=== PATIENT | male | born 1960 | race Caucasian/White ===

== ENCOUNTER → 2024-10-12 07:43 | Outpatient (CLI) | payer OTHER, SELFPAY ==
--- NOTE | 2024-10-12 07:44 | DI.MRI.S_ITS ---
PROCEDURE: MR PELIS WO/W CON INDICATIONS: 63 y/o M w/ elevated PSA, please eval. TECHNIQUE: Coronal HASTE, axial T1 FSE with fat saturation, 3-plane nonbreath-hold T2 FSE. After the administration of contrast, dynamic axial, delayed axial and coronal VIBE or 2-D FLASH with fat saturation through the pelvis. Diffusion weighted imaging and ADC was performed. COMPARISON: None. FINDINGS: Image quality: Diffusion weighted and dynamic contrast enhanced images are diagnostic. Prostate: Gland size is 5.6 x 5.3 x 4.3 cm; ellipsoid gland volume is 66 mL. There is peripheral, T2 hypointense signal within the peripheral zone, majority of which in the base, without restricted diffusion; findings likely indicate prostatitis. Hypertrophy of the transition zone. Prostate lesion as follows: Lesion 1: Location: Right anterior transition zone, close to midline, base to mid gland, on axial series 4, image 14 and coronal series 5, image 10. Size: 1.5 x 2.3 cm. T2W signal: Hypointense. Partially capsulated. DWI signal: Markedly hyperintense. ADC signal: Markedly hypointense. Enhancement: Yes. Extracapsular extension: No. No neurovascular involvement. PI-RADS score: 3 Genitourinary system: Trabeculated bladder wall. Distal ureters are non distended. Bowel and peritoneum: No pathologic free pelvic fluid. Inferior colon and small bowel loops are normal in caliber. Nodes and vessels: No pelvic or inguinal adenopathy by size criteria. Iliac vessels are normal in caliber. Soft tissues: No inguinal hernias. Bones: Marrow demonstrates normal overall signal, without lesions to suggest metastases. IMPRESSION: Prostatitis. PI-RADS 3 lesion, as above. No pelvic lymphadenopathy by size criteria. No aggressive osseous abnormality. Dictated by: Jose Rafael Macias M.D. on 10/12/2024 at 13:20 Approved by: Jose Rafael Macias M.D. on 10/12/2024 at 13:41
== END ==
PROVIDERS: Family Provider Family Medicine; PCP Family Medicine; Referring Provider Urology; Visit Provider Urology
DX: N41.9 Inflammatory disease of prostate, unspecified (principal); N42.9 Disorder of prostate, unspecified; N32.89 Other specified disorders of bladder; R97.20 Elevated prostate specific antigen [PSA]
CPT/HCPCS: 72197; A9579

== ENCOUNTER → 2025-04-25 09:57 | Outpatient (CLI) | payer OTHER, SELFPAY ==
--- NOTE | 2025-04-25 09:58 | DI.RAD.S_ITS ---
PROCEDURE: XR FOOT LT MIN 3V INDICATIONS: Non-healing wound of L 2nd MTP/ball of foot, eval for osteo TECHNIQUE: 3 views of the foot were acquired. COMPARISON: None. FINDINGS: Bones: No specific radiographic evidence of osteomyelitis. Severe hallux valgus, moderate metatarsus abductus and hammertoe deformities 1st 3rd 4th and 5th digits noted. 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 Joints: Moderate degeneration 1st MTP and mild degeneration in the interphalangeal joints and midfoot Soft tissues: No soft tissue abnormality. IMPRESSION: No specific evidence for osteomyelitis. Other chronic findings that as described Dictated by: Abdoulaye Saldivar M.D. on 04/26/2025 at 10:47 Approved by: Abdoulaye Saldivar M.D. on 04/26/2025 at 10:48
== END ==
PROVIDERS: Family Provider Family Medicine; PCP Family Medicine; Referring Provider Surgery; Visit Provider Surgery
DX: L89.899 Pressure ulcer of other site, unspecified stage (principal); M20.12 Hallux valgus (acquired), left foot; M20.42 Other hammer toe(s) (acquired), left foot; M19.072 Primary osteoarthritis, left ankle and foot; L89.893 Pressure ulcer of other site, stage 3; L84 Corns and callosities; R60.0 Localized edema; I10 Essential (primary) hypertension; Z89.422 Acquired absence of other left toe(s)
CPT/HCPCS: 73630; 87070; 87077; 87147; 87205

== ENCOUNTER → 2025-05-16 10:09 | Outpatient (CLI) | payer OTHER, SELFPAY | LOC: WC 10:18 | PROVIDERS: Family Provider Family Medicine; PCP Family Medicine; Referring Provider Family Medicine; Visit Provider Surgery | DX: L89.893 Pressure ulcer of other site, stage 3 (principal); L84 Corns and callosities; I10 Essential (primary) hypertension; Z89.422 Acquired absence of other left toe(s) | CPT/HCPCS: 99213 ==

== ENCOUNTER → 2025-05-29 13:41 | Outpatient (CLI) | payer OTHER, SELFPAY | LOC: WC 13:42 | PROVIDERS: Family Provider Family Medicine; PCP Family Medicine; Referring Provider Family Medicine; Visit Provider Surgery | DX: L89.893 Pressure ulcer of other site, stage 3 (principal); L84 Corns and callosities; L98.8 Other specified disorders of the skin and subcutaneous tissue; I10 Essential (primary) hypertension; Z89.422 Acquired absence of other left toe(s); R20.8 Other disturbances of skin sensation; Z87.891 Personal history of nicotine dependence | CPT/HCPCS: 11042; 99213 ==

== ENCOUNTER → 2025-06-05 08:59 | Outpatient (CLI) | payer OTHER, SELFPAY | LOC: WC 09:00 | PROVIDERS: Family Provider Family Medicine; PCP Family Medicine; Referring Provider Family Medicine; Visit Provider Surgery | DX: L89.623 Pressure ulcer of left heel, stage 3 (principal); R23.4 Changes in skin texture; L84 Corns and callosities; R20.8 Other disturbances of skin sensation; Z89.422 Acquired absence of other left toe(s) | CPT/HCPCS: 11042 ==

== ENCOUNTER → 2025-06-12 08:37 | Outpatient (CLI) | payer OTHER, SELFPAY | LOC: WC 08:38 | PROVIDERS: Family Provider Family Medicine; PCP Family Medicine; Referring Provider Family Medicine; Visit Provider Surgery | DX: L89.623 Pressure ulcer of left heel, stage 3 (principal); Z89.422 Acquired absence of other left toe(s); L84 Corns and callosities | CPT/HCPCS: 99212; 99213 ==

== ENCOUNTER → 2025-06-19 08:46 | Outpatient (CLI) | payer OTHER, SELFPAY | LOC: WC 08:47 | PROVIDERS: Family Provider Family Medicine; PCP Family Medicine; Referring Provider Family Medicine; Visit Provider Surgery | DX: L89.893 Pressure ulcer of other site, stage 3 (principal); L84 Corns and callosities; R20.8 Other disturbances of skin sensation; I10 Essential (primary) hypertension; Z89.422 Acquired absence of other left toe(s) | CPT/HCPCS: 11042 ==

== ENCOUNTER → 2025-06-26 15:57 | Outpatient (CLI) | payer OTHER, SELFPAY | LOC: WC 15:57 | PROVIDERS: Family Provider Family Medicine; PCP Family Medicine; Referring Provider Family Medicine; Visit Provider Surgery | DX: L89.893 Pressure ulcer of other site, stage 3 (principal); L84 Corns and callosities; I10 Essential (primary) hypertension; R20.8 Other disturbances of skin sensation; Z89.422 Acquired absence of other left toe(s) | CPT/HCPCS: 11042 ==

== ENCOUNTER → 2025-07-03 09:45 | Outpatient (CLI) | payer OTHER, SELFPAY | LOC: WC 09:46 | PROVIDERS: Family Provider Family Medicine; PCP Family Medicine; Referring Provider Family Medicine; Visit Provider Surgery | DX: L89.893 Pressure ulcer of other site, stage 3 (principal); L84 Corns and callosities; I10 Essential (primary) hypertension; Z89.422 Acquired absence of other left toe(s) | CPT/HCPCS: 11042; 99213 ==

== ENCOUNTER → 2025-07-10 15:03 | Outpatient (CLI) | payer OTHER, SELFPAY | LOC: WC 15:03 | PROVIDERS: Family Provider Family Medicine; PCP Family Medicine; Referring Provider Family Medicine; Visit Provider Surgery | DX: T87.89 Other complications of amputation stump (principal); L89.623 Pressure ulcer of left heel, stage 3; L84 Corns and callosities | CPT/HCPCS: 99213 ==

== ENCOUNTER → 2025-07-17 11:34 | Outpatient (CLI) | payer OTHER, SELFPAY | LOC: WC 11:48 | PROVIDERS: Family Provider Family Medicine; PCP Family Medicine; Referring Provider Family Medicine; Visit Provider Surgery | DX: Z09 Encounter for follow-up examination after completed treatment for conditions other than malignant neoplasm (principal); Z87.2 Personal history of diseases of the skin and subcutaneous tissue; L89.623 Pressure ulcer of left heel, stage 3 | CPT/HCPCS: 99211; 99213 ==